=== PATIENT | female | born 1990 | race Caucasian/White ===

== ENCOUNTER 2024-02-13 19:58 | Emergency (ER) | payer MEDICAID ==
[~2024-02-13] VITALS: Ht 165.1 cm; Wt 64.0 kg
[2024-02-13 20:04] VITALS: BP 137/88; PULSE 88; RESP 18; TEMP 98.4; O2SAT 100
[2024-02-13] MEDS: BACITRACIN ZINC OINT UDPKT TOP ONE (21:15)
[2024-02-13] MEDS: IBUPROFEN 600MG TABLET PO ONE (21:15)
[2024-02-13] MEDS: LIDOCAINE HCL/PF 1% 10 MG/ML 5ML VIAL INFIL ONE (21:15)
== END 2024-02-13 23:31 | disposition home or self-care (01) ==
LOC: ER 19:58
DX: S00.83XA Contusion of other part of head, initial encounter (principal); Y08.89XA Assault by other specified means, initial encounter; Y93.89 Activity, other specified; Y92.89 Other specified places as the place of occurrence of the external cause; Y99.8 Other external cause status
CPT/HCPCS: 70486; 12013; 99284; J3490; Z7610